=== PATIENT | female | born 1945 | race African-American/Black ===

== ENCOUNTER 2022-12-26 07:02 | Day surgery (SDC) | payer BC ==
[2022-12-22 16:01] VITALS: BMI 19.8
[2022-12-26] MEDS ORDERED: LIDOCAINE HCL/PF 2% SDV 5ML VIAL ONE (07:37)
[2022-12-26] MEDS ORDERED: PROPOFOL 120 ML ONE (07:37)
[2022-12-26 08:41] VITALS: RESP 16; TEMP 97.6
[2022-12-26 08:56] VITALS: BP 116/66; PULSE 88
== END 2022-12-26 10:15 | disposition home or self-care (01) ==
LOC: FASU-ENDO 07:02
PROVIDERS: ATTEND Internal Medicine Gastroenterology
PROC: 0DB68ZX Excision of Stomach, Via Natural or Artificial Opening Endoscopic, Diagnostic (ICD-10-PCS; 2022-12-26)
PROC: 0DB48ZX Excision of Esophagogastric Junction, Via Natural or Artificial Opening Endoscopic, Diagnostic (ICD-10-PCS; 2022-12-26)
PROC: 0DB98ZX Excision of Duodenum, Via Natural or Artificial Opening Endoscopic, Diagnostic (ICD-10-PCS; principal; 2022-12-26 08:16)
DX: K29.50 Unspecified chronic gastritis without bleeding (principal); K20.90 Esophagitis, unspecified without bleeding; R10.13 Epigastric pain
CPT/HCPCS: 82962; 88305-TC; 88342-TC